=== PATIENT | male | born 1990 | race Two or more races ===

== ENCOUNTER → 2021-08-30 | Emergency (ER) | payer BC ==
[~2021-08-30] VITALS: Ht 182.9 cm; Wt 81.7 kg
[~2021-08-30] MED LIST: ACETAMINOPHEN-1 EAC1 PO; HYDROCODON-ACE1 EA11 PO; IBUPROFEN400 MG PO; IBUPROFEN600 MG PO; PERCOCET 7.5-31 EACH PO
== END ==
LOC: ED 20:09
DX: S05.02XA Injury of conjunctiva and corneal abrasion without foreign body, left eye, initial encounter (principal); W50.0XXA Accidental hit or strike by another person, initial encounter
CPT/HCPCS: 99283; A9270

== ENCOUNTER 2022-02-11 01:15 | Emergency (ER) | payer SELFPAY ==
[~2022-02-11] VITALS: Ht 182.9 cm; Wt 81.7 kg
--- NOTE | ~2022-02-11 | EKG ---
[facility] [address] [facility] [facility] [place], [place] [address] Draft EK completed, results pending confirmation PATIENT NAME: SAMANTHA MENA Electrocardiogram DATE OF : 86 PHYSICIAN: PRELIMINARY REPORT #: [id number] REPORT IS CONFIDENTIAL AND NOT TO BE RELEASED WITHOUT AUTHORIZATION
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
[2022-02-11] MEDS ORDERED: CIPRO500 MG PO (03:42)
== END 2022-02-11 04:40 | disposition home or self-care (01) ==
LOC: ED 01:15
DX: N39.0 Urinary tract infection, site not specified (principal); Z20.822 Contact with and (suspected) exposure to COVID-19
CPT/HCPCS: 36415; 71045; 80053; 81001; 83605; 85025; 87088; 87502; 93005; 93010; 96361; 96365; 99284-25; A9270; J0696; J7030; U0003